=== PATIENT | female | born 1990 | race Hispanic/Latino ===

== ENCOUNTER 2018-05-11 23:36 | Emergency (ER) | payer BC ==
[2018-05-12 00:04] VITALS: O2SAT 99
[2018-05-12] MEDS ORDERED: Sodium Chloride 0.9% 1,000 ML IV STA ×3 (00:09→03:11)
--- NOTE | 2018-05-12 00:16 | ED PDOC ---
HPI:Nausea, Vomiting, Diarrhea Time Seen by Provider: 05/12/18 00:03 Chief Complaint (Nursing): GI Problem Chief Complaint (Provider): vomiting History Per: Patient, Family (mother) History/Exam Limitations: no limitations Onset/Duration Of Symptoms: Hrs (5) Current Symptoms Are (Timing): Still Present Additional Complaint(s): 27 y/o female history of ulcerative colitis (s/p colectomy with J-pouch 2015) presents for evaluation of multiple episodes of vomiting x 5 hours. Patient unable to tolerate PO. Denies fever, cough, congestion, chest pain, shortness of breath, palpitations, changes in bowel movements, urinary symptoms. + sick contacts at work. Past Medical History Reviewed: Historical Data, Nursing Documentation, Vital Signs Vital Signs: Last Vital Signs Temp 97.5 F L 05/11/18 23:50 Pulse 66 05/11/18 23:50 Resp 17 05/11/18 23:50 BP 113/69 05/11/18 23:50 Pulse Ox 99 05/11/18 23:50 - Medical History Other PMH: Ulcerative Colitis - Surgical History Other surgeries: colectomy, Jpouch resection - Family History Family History: States: No Known Family Hx - Living Arrangements Living Arrangements: With Family - Home Medications Home Medications: Ambulatory Orders Medication Instructions Recorded Famotidine [Pepcid] 20 mg PO BID #20 tab 05/12/18 Ondansetron ODT [Zofran ODT] 4 mg PO Q8 PRN #10 odt 05/12/18 - Allergies Allergies/Adverse Reactions: Allergies Allergy/AdvReac Type Severity Reaction Status Date / Time shellfish derived Allergy Mild rash and Verified 05/12/18 00:04 swelling Review of Systems ROS Statement: Except As Marked, All Systems Reviewed And Found Negative Gastrointestinal: Positive for: Nausea, Vomiting Physical Exam - Reviewed Nursing Documentation Reviewed: Yes Vital Signs Reviewed: Yes - Physical Exam Appears: Positive for: Well, Non-toxic, Uncomfortable Head Exam: Positive for: ATRAUMATIC, NORMAL INSPECTION, NORMOCEPHALIC Skin: Positive for: Pallor Eye Exam: Positive for: Normal appearance ENT: Positive for: Normal ENT Inspection Cardiovascular/Chest: Positive for: Regular Rate, Rhythm Respiratory: Positive for: Normal Breath Sounds Gastrointestinal/Abdominal: Positive for: Normal Exam Back: Positive for: Normal Inspection Extremity: Positive for: Normal ROM Neurologic/Psych: Positive for: Alert, Oriented (x3) - Laboratory Results Result Diagrams: 05/12/18 00:21 05/12/18 00:21 - ECG O2 Sat by Pulse Oximetry: 99 - Progress ED Course And Treament: -cbc -cmp -lipase -vbg with lactate -IV NS bolus -IV zofran -IV pepcid 00:50 Patient still vomiting; IV reglan ordered 1:45 Patient still vomiting. Lactate elevated on VBG; Case discussed with ED attend ing Dr. Schwarz, will give IV Haldol dose and repeat lactic acid after IV hydration 3:30 Patient sleeping; no vomiting since Haldol given 5:00 Patient awake, states she is feeling better. Tolerated PO. Abdomen remains soft, NT/ND. Repeat lactic acid 1.0 Patient educated on findings, discharged with rx Zofran, Pepcid Encouraged increase fluid intake Follow up with primary doctor within 2 days Return precautions given Patient requires no further intervention in the ED and is stable for discharge at this time Disposition - Clinical Impression Clinical Impression: Gastroenteritis - Patient ED Disposition Is Patient to be Admitted: No Counseled Patient/Family Regarding: Studies Performed, Diagnosis, Need For Followup, Rx Given - Disposition Disposition: Routine/Home Disposition Time: 05:06 Condition: IMPROVED Prescriptions: Famotidine [Pepcid] 20 mg PO BID #20 tab Ondansetron ODT [Zofran ODT] 4 mg PO Q8 PRN #10 odt PRN Reason: Nausea/Vomiting Instructions: Viral Gastroenteritis Forms: [employer] (Urdu)
[2018-05-12 00:32] LABS: BASO # 0.1 K/uL (0.0-0.2); BASO % 0.6 % (0.0-2.0); EOS % 0.6 % (0.0-4.0); HEMOGLOBIN 13.8 g/dL (12.0-16.0); LYMPH # 2.1 K/uL (1.0-4.3); LYMPH % 23.2 % (20.0-40.0); MEAN CELL VOLUME 90.9 fl (81.0-99.0); MEAN CORPUSCULAR HEMOGLOBIN 29.9 pg (27.0-31.0); MONO # 0.5 K/uL (0.0-0.8); NEUT # 6.2 K/uL (1.8-7.0); NEUT % 69.6 % (50.0-75.0); NRBC % 0.1 % (0.0-0.0); RBC 4.6 Mil/uL (3.80-5.20); RED CELL DISTRIBUTION WIDTH 14.6 % (11.5-14.5); WHITE BLOOD COUNT 8.9 K/uL (4.8-10.8)
[2018-05-12 00:41] LABS: ALB/GLOB RATIO 1.4 (1.0-2.1); ALBUMIN 4.5 g/dL (3.5-5.0); ALT/SGPT 22 U/L (9-52); AST/SGOT 39 U/L (14-36); BLOOD UREA NITROGEN 15 mg/dl (7-17); CALCIUM 9.8 mg/dL (8.4-10.2); GFR NON-AFRICAN AMERICAN > 60; LIPASE 93 U/L (23-300)
[2018-05-12 01:01] LABS: VENOUS BLOOD GAS BASE EXCESS -0.3 mmol/L (0.0-2.0); VENOUS BLOOD GAS PCO2 25 mmHg (40-60); VENOUS BLOOD GAS PO2 45 mm/Hg (30-55); VENOUS BLOOD PH 7.53 (7.32-7.43)
[2018-05-12 02:39] LABS: SQUAMOUS EPITHIAL 1 /hpf (0-5); URINE BILIRUBIN NEGATIVE (NEGATIVE); URINE BLOOD NEGATIVE (NEGATIVE); URINE CLARITY SLIGHTY-CLOUDY (Clear); URINE COLOR YELLOW (YELLOW); URINE GLUCOSE (UA) NEG (NEGATIVE); URINE LEUKOCYTE ESTERASE NEG Leu/uL (Negative); URINE PROTEIN 30 mg/dL (NEGATIVE)
[2018-05-12 06:09] VITALS: BP 103/55; PULSE 78; RESP 16; TEMP 98.1
== END 2018-05-12 06:08 | disposition home or self-care (01) ==
LOC: H.ER 23:36
DX: K52.9 Noninfective gastroenteritis and colitis, unspecified (principal)
CPT/HCPCS: 80053; 81003; 81025; 82803; 83605; 83690; 85025; 87804; 96374; 96375; 99284; J1630; J2405; J2765; J7030